=== PATIENT | male | born 1970 | race Hispanic/Latino ===

== ENCOUNTER 2018-10-06 13:31 | Emergency (ER) | payer MEDICAID ==
[2018-10-06 13:40] VITALS: BP 126/84
--- NOTE | 2018-10-06 13:42 | Emergency Department Report ---
Chief Complaint: Skin Rash Stated Complaint: SORES ALL OVER BODY Time Seen by Provider: 10/06/18 13:37 - HPI History of Present Illness: This is a 48 y.o. male that presents to the ER with generalized rash for 2 months. Pruitic rash. PMH arthritis, bipolar, diverticulitis, and chronic back pain Patient treated for bed bugs by termite control technician, given steroid cream, and antibiotics from PCP. - Exam Vital Signs: Vital Signs 10/06/18 13:38 Temperature 98.1 F Pulse Rate 99 H Respiratory 16 Rate Blood Pressure 126/84 O2 Sat by Pulse 97 Oximetry MSE screening note: Focused history and physical exam performed. Due to findings the following was ordered: ACC for further evaluation. ED Disposition for MSE Condition: Stable
--- NOTE | 2018-10-06 15:08 | Emergency Department Report ---
ED Rash HPI - HPI Chief Complaint: Skin Rash Stated Complaint: SORES ALL OVER BODY Time Seen by Provider: 10/06/18 13:37 Duration: approx 2 months Location: Neck, Back, Abdomen, Upper Extremities, Lower Extremities, Other (sparing the palms and soles) Rash Symptoms: Yes Itching, No Facial Swelling, No Tongue/Oral Swelling, No Breathing Difficulties, No Choking Sensation, No Wheezing/Dyspnea, No Peeling, No Blistering, No Fever, No Lightheaded, No Malaise, No Myalgias Other History: Patient is a 48-year-old male who has had sore like lesions some surrounding erythema on his body for the last month. Patient saw a white shoe examiner and was told that he may have bedbugs. Patient states he was treated with permethrin twice and also was started on an unknown antibiotic. Patient states these sores have not gotten any better. The patient denies any fevers chills nausea vomiting. Patient is not sexually active at this time however he states that approximately 20 years ago he was contacted by the health department told he had exposure to syphilis. Patient did not follow-up. ED Review of Systems ROS: Stated complaint: SORES ALL OVER BODY Other details as noted in HPI Comment: All other systems reviewed and negative ED Past Medical Hx - Past Medical History Previous Medical History?: Yes Hx Arthritis: Yes Hx Psychiatric Treatment: Yes (BIPOLAR, SCHIZOPHRENIA, DEPRESSION, ANXIETY) Additional medical history: Diverticulitis - Surgical History Past Surgical History?: Yes Additional Surgical History: SPLEENECTOMY - Social History Smoking Status: Current Every Day Smoker Substance Use Type: None - Medications Home Medications: Home Medications Medication Instructions Recorded Confirmed Last Taken Type Divalproex [Jaziel Hollis] 1,000 mg PO QPM 02/21/15 02/21/15 02/20/15 History FLUoxetine [PROzac] 20 mg PO QPM 02/21/15 02/21/15 02/20/15 History OLANzapine [ZyPREXA] 5 mg PO QPM 02/21/15 02/21/15 02/20/15 History Chlorhexidine Gluconate [Hibiclens] 1 applic TP BID #500 ml 10/06/18 Unknown Rx Doxycycline [Vibramycin CAP] 100 mg PO Q12HR #28 capsule 10/06/18 Unknown Rx Ibuprofen [Ibu] 600 mg PO Q6HR PRN #20 tablet 10/06/18 Unknown Rx Rash Exam - Exam General: Vital signs noted. No distress. Alert and acting appropriately. HEENT: No Periorbital Edema, No Conjuctival Injection, No Chemosis, No Perioral Edema, No Tongue Edema, No Uvular Edema, No Compromised Airway, No Drooling Lungs: Yes Good Air Exchange (Normal Breath Sounds), No Wheezes, No Ronchi, No Stridor, No Cough, No Labored Respirations, No Retractions, No Use of Accessory Muscles, No Other Abnormal Lung Sounds Heart: Yes Regular, No Murmur Skin: Yes Tenderness, Yes Erythema, Yes Other (patient has multiple ulcerated lesions diffusely in various stages of healing on his back and torso upper and lower extremities) Other: Positive: Abdomen Normal, Neurologic Normal, Musculoskeletal Normal ED Course Vital Signs 10/06/18 13:38 Temperature 98.1 F Pulse Rate 99 H Respiratory 16 Rate Blood Pressure 126/84 O2 Sat by Pulse 97 Oximetry ED Medical Decision Making - Medical Decision Making Patient's lesions are not classic for syphilis however RPR has been sent. Patient is lesions. He has some secondary infection in particular and lesions on the back. Patient be referred back to dermatology patient be started on doxycycline patient be discharged home.` Critical care attestation.: If time is entered above; I have spent that time in minutes in the direct care of this critically ill patient, excluding procedure time. ED Disposition Clinical Impression: Skin lesions Disposition: DC-01 TO HOME OR SELFCARE Is pt being admited?: No Does the pt Need Aspirin: No Condition: Stable Referrals: [facility] [Provider Group] - 3-5 Days Time of Disposition: 15:13
== END 2018-10-06 15:28 | disposition home or self-care (01) ==
LOC: ED 13:31
DX: L98.9 Disorder of the skin and subcutaneous tissue, unspecified (principal); M19.90 Unspecified osteoarthritis, unspecified site; F31.9 Bipolar disorder, unspecified; F17.200 Nicotine dependence, unspecified, uncomplicated; Z88.0 Allergy status to penicillin; Z88.4 Allergy status to anesthetic agent; Z79.899 Other long term (current) drug therapy
CPT/HCPCS: 36415; 86592; 99283

== ENCOUNTER 2018-10-11 10:10 | Emergency (ER) | payer MEDICAID ==
[2018-10-11 10:56] LABS: Basophils # (Auto) 0.1 K/mm3 (0.0-0.1); Basophils % (Auto) 0.9 % (0.0-1.8); Eosinophils # (Auto) 0.2 K/mm3 (0.0-0.4); Hematocrit 44.1 % (35.5-45.6); Hemoglobin 15.3 gm/dl (11.8-15.2); Lymphocytes # (Auto) 2.9 K/mm3 (1.2-5.4); Lymphocytes % (Auto) 31.5 % (13.4-35.0); Mean Corpuscular HGB Conc 35 % (32-34); Mean Corpuscular Volume 91 fl (84-94); Monocytes # (Auto) 0.7 K/mm3 (0.0-0.8); Monocytes % (Auto) 7.7 % (0.0-7.3); Platelet Count 226 K/mm3 (140-440); Red Blood Count 4.84 M/mm3 (3.65-5.03); Red Cell Distribution Width 14.3 % (13.2-15.2)
[2018-10-11 11:15] LABS: BUN/Creatinine Ratio 41; Blood Urea Nitrogen 33 mg/dL (9-20); Calcium 8.9 mg/dL (8.4-10.2); Hemolysis Index 114
[2018-10-11] MEDS ORDERED: NACL 0.9% 1000 ML 1,000 ML IV ONE (11:31)
--- NOTE | 2018-10-11 11:43 | Emergency Department Report ---
HPI - General Chief Complaint: Abdominal Pain Time Seen by Provider: 10/11/18 11:00 - HPI HPI: 48-year-old male presents to the emergency department with a complaint of some rectal bleeding and lower abdominal pain has been going on for the past 24 hours. He denies any fever, nausea, vomiting, diarrhea. He has a history of diverticulosis, diverticulitis, arthritis, bipolar disorder and depression. His director case is Dr. woo in his primary care physician is Dr. Penn. No recent travel or sick contacts at home. He has not taken anything for his symptoms prior to arrival. ED Past Medical Hx - Past Medical History Previous Medical History?: Yes Hx Arthritis: Yes Hx Psychiatric Treatment: Yes (BIPOLAR, SCHIZOPHRENIA, DEPRESSION, ANXIETY) Additional medical history: Diverticulitis - Surgical History Past Surgical History?: Yes Additional Surgical History: SPLEENECTOMY - Social History Smoking Status: Current Every Day Smoker Substance Use Type: Alcohol - Medications Home Medications: Home Medications Medication Instructions Recorded Confirmed Last Taken Type Divalproex Dr [Jaziel Hollis] 1,000 mg PO QPM 02/21/15 02/21/15 02/20/15 History FLUoxetine [PROzac] 20 mg PO QPM 02/21/15 02/21/15 02/20/15 History OLANzapine [ZyPREXA] 5 mg PO QPM 02/21/15 02/21/15 02/20/15 History Chlorhexidine Gluconate [Hibiclens] 1 applic TP BID #500 ml 10/06/18 Unknown Rx Doxycycline [Vibramycin CAP] 100 mg PO Q12HR #28 capsule 10/06/18 Unknown Rx Ibuprofen [Ibu] 600 mg PO Q6HR PRN #20 tablet 10/06/18 Unknown Rx ED Review of Systems ROS: Stated complaint: GI BLEED Other details as noted in HPI Comment: All other systems reviewed and negative Constitutional: denies: chills, fever Eyes: denies: eye pain, vision change ENT: denies: ear pain, throat pain Respiratory: denies: cough, shortness of breath Cardiovascular: denies: chest pain, palpitations Gastrointestinal: abdominal pain, other (rectal bleeding) Genitourinary: denies: urgency, dysuria Musculoskeletal: denies: back pain, arthralgia Skin: denies: rash, lesions Neurological: denies: headache, weakness Physical Exam - Physical Exam Vital Signs: Vital Signs 10/11/18 10:16 Temperature 98.7 F Pulse Rate 104 H Respiratory 18 Rate Blood Pressure 133/82 O2 Sat by Pulse 97 Oximetry Physical Exam: GENERAL: The patient is well-developed well-nourished. HEENT: Normocephalic. Atraumatic. Patient has moist mucous membranes. EYES: Extraocular motions are intact. NECK: Supple. Trachea is midline. CHEST/LUNGS: Clear to auscultation. There is no respiratory distress noted. HEART/CARDIOVASCULAR: Regular. There is no tachycardia. There is no obvious murmur. ABDOMEN: Abdomen is soft. Mild lower abdominal tenderness to palpation. No guarding. Patient has normal bowel sounds. There is no abdominal distention. SKIN: Skin is warm and dry. NEURO: The patient is awake, alert, and oriented. The patient is cooperative. The patient has no focal neurologic deficits. The patient has normal speech. MUSCULOSKELETAL: There is no tenderness or deformity. There is no limitation range of motion. There is no evidence of acute injury. RECTAL: No gross blood. No external hemorrhoids or lesions seen. A small amount of stool was obtained for guaiac testing but was positive. ED Course Vital Signs 10/11/18 10:16 Temperature 98.7 F Pulse Rate 104 H Respiratory 18 Rate Blood Pressure 133/82 O2 Sat by Pulse 97 Oximetry - Consultations Consultation #1: 10/11/18 16:17 I spoke with Rosalie the PA for [facility], who listened to the case presentation and gastroenterology agrees with the plan for discharge and outpatient follow-up. ED Medical Decision Making - Lab Data Result diagrams: 10/11/18 10:39 10/11/18 10:39 - Radiology Data Radiology results: report reviewed PROCEDURE: CT ABDOMEN PELVIS WO CON TECHNIQUE: CT examination of the abdomen without IV contrast CT examination of the pelvis without IV contrast Lack of oral and IV contrast limits the examination. HISTORY: Abd pain, rectal bleeding COMPARISONS: February 21, 2015 FINDINGS: Nonspecific slight prominence of pleural fat in the inferior left major fissure likely reflects developmental variation. Slight linear scar versus atelectasis in both lung bases posteriorly. No acute fracture. Normal noncontrast appearance of the liver, gallbladder, adrenals, pancreas, and spleen containing benign calcified granulomas. Normal caliber abdominal aorta with slight calcified atherosclerotic plaque. Normal caliber IVC. 3 mm and 6 mm nonobstructing right renal calculi. Otherwise normal-appearing right kidney and ureter. 2 mm nonobstructing left renal calculus. 11 mm nonspecific hyperdense exophytic left renal lesion arising from the lateral lower pole. Average CT density is 51. This may be a hyperdense complex cyst. It appears new from 2015. Recommend follow-up ultrasound. No left hydronephrosis. Normal appearing left ureter. Small fat-containing umbilical hernia. Small fat-containing bilateral inguinal hernia, slightly larger on the left. No retroperitoneal adenopathy. No evidence of mesenteric mass. Normal-appearing stomach and duodenum. No small bowel distention in the abdomen and pelvis. No pelvic free fluid. Normal-appearing urinary bladder, prostate, and seminal vesicles. No definite rectal abnormality. No gross ascites, free air, or colonic distention. Normal- appearing cecum, terminal ileum, and appendix. There is slight sigmoid diverticulosis without CT evidence of diverticulitis. There is a 1.7 cm long segment of mid sigmoid colon which is collapsed and possibly contains mural thickening. This may be artifact of decompression from peristalsis. Differential includes focal edema, inflammation, infection, or neoplastic infiltration. IMPRESSION: Nonspecific collapsed appearance of a 1.7 cm on segment of mid sigmoid colon likely reflects artifact of decompression from peristalsis. Suggestion of slight mural thickening in this region, however, raises low-level suspicion of edema, inflammation, infection, or neoplastic infiltration. Slight sigmoid diverticulosis without CT evidence of diverticulitis New hyperdense exophytic smoothly marginated lesion in left kidney may be a benign hyperdense cyst. Recommend follow-up renal ultrasound Bilateral nonobstructing renal calculi Multifocal fat-containing hernias This document is electronically signed by Doug Robledo MD., October 11 2018 02:27:54 PM ET Transcribed By: CHRISTIANA Dictated By: DOUG ROBLEDO MD Electronically Authenticated By: DOUG ROBLEDO MD Signed Date/Time: 10/11/18 1421 - Medical Decision Making Patient presents to the emergency department with some recent rectal bleeding. Labs and unremarkable. Hemoglobin is 15.3. On examination he has some mild lower abdominal tenderness to palpation but no guarding in his abdomen is nontoxic, nonrigid. Patient complains of some generalized weakness but he was seen ambulatory throughout the emergency department and even made a few trips outside to his car and does not appear unstable or in any acute distress. A CT scan of the abdomen and pelvis was done that shows some slight sigmoid diverticulosis, a possible renal cyst, and the nonspecific appearance of the mid sigmoid colon. Rectal examination, there were no external hemorrhoids or lesions. Stool is obtained that was positive on guaiac testing but there was no gross blood. I spoke with gastroenterology who listened to the case presentation and agrees with the plan for discharge and outpatient GI follow-up. All the labs and imaging and plan for discharge were discussed with the patient who understands and agrees. He will return to the ER for any worsening of his symptoms or any acute distress. - Differential Diagnosis malignancy, hemorrhoids, diverticulosis, colitis Critical Care Time: No Critical care attestation.: If time is entered above; I have spent that time in minutes in the direct care of this critically ill patient, excluding procedure time. ED Disposition Clinical Impression: Rectal bleeding, Diverticulosis Abdominal pain Qualifiers: Abdominal location: lower abdomen, unspecified Qualified Code(s): R10.30 - Lower abdominal pain, unspecified Disposition: DC-01 TO HOME OR SELFCARE Is pt being admited?: No Condition: Stable Instructions: Rectal Bleeding (ED), Diverticulosis (ED), Diverticulosis Diet (ED), Abdominal Pain (ED) Additional Instructions: Please follow-up with your primary care physician and director case. Return to the emergency department with any return or worsening of your symptoms including increased rectal bleeding, or with any acute distress. Referrals: RICK PENN MD [Primary Care Provider] - 2-3 Days BRIGITTE WOO MD [Staff Physician] - 2-3 Days Time of Disposition: 15:15
[2018-10-11 13:21] LABS: Bilirubin,Urine NEG (Negative); Blood,Urine NEG (Negative); Color,Urine Yellow (Yellow); Mucus,Urine 3+ /HPF; Protein,Urine <15 mg/dL mg/dL (Negative)
--- NOTE | 2018-10-11 14:29 | Cat Scan Report ---
PROCEDURE: CT ABDOMEN PELVIS WO CON TECHNIQUE: CT examination of the abdomen without IV contrast CT examination of the pelvis without IV contrast Lack of oral and IV contrast limits the examination. HISTORY: Abd pain, rectal bleeding COMPARISONS: February 21, 2015 FINDINGS: Nonspecific slight prominence of pleural fat in the inferior left major fissure likely reflects devel opmental variation. Slight linear scar versus atelectasis in both lung bases posteriorly. No acute fr acture. Normal noncontrast appearance of the liver, gallbladder, adrenals, pancreas, and spleen conta ining benign calcified granulomas. Normal caliber abdominal aorta with slight calcified atherosclerot ic plaque. Normal caliber IVC. 3 mm and 6 mm nonobstructing right renal calculi. Otherwise normal-appearing right kidney and ureter. 2 mm nonobstructing left renal calculus. 11 mm nonspecific hyperdense exophytic left renal lesion randall sing from the lateral lower pole. Average CT density is 51. This may be a hyperdense complex cyst. It appears new from 2014. Recommend follow-up ultrasound. No left hydronephrosis. Normal appearing left ureter. Small fat-containing umbilical hernia. Small fat-containing bilateral inguinal hernia, slightly large r on the left. No retroperitoneal adenopathy. No evidence of mesenteric mass. Normal-appearing stomach and duodenum. No small bowel distention in the abdomen and pelvis. No pelvic free fluid. Normal-appearing urinary bladder, prostate, and seminal vesicles. No definite r ectal abnormality. No gross ascites, free air, or colonic distention. Normal-appearing cecum, termina l ileum, and appendix. There is slight sigmoid diverticulosis without CT evidence of diverticulitis. There is a 1.7 cm long segment of mid sigmoid colon which is collapsed and possibly contains mural th ickening. This may be artifact of decompression from peristalsis. Differential includes focal edema, inflammation, infection, or neoplastic infiltration. IMPRESSION: Nonspecific collapsed appearance of a 1.7 cm on segment of mid sigmoid colon likely reflects artifact of decompression from peristalsis. Suggestion of slight mural thickening in this region, however, ra ises low-level suspicion of edema, inflammation, infection, or neoplastic infiltration. Slight sigmoid diverticulosis without CT evidence of diverticulitis New hyperdense exophytic smoothly marginated lesion in left kidney may be a benign hyperdense cyst. R ecommend follow-up renal ultrasound Bilateral nonobstructing renal calculi Multifocal fat-containing hernias This document is electronically signed by Doug Robledo MD., October 11 2018 02:27:54 PM ET
[2018-10-11 15:45] VITALS: BP 118/75
== END 2018-10-11 15:42 | disposition home or self-care (01) ==
LOC: ED 10:10
DX: K62.5 Hemorrhage of anus and rectum (principal); K57.90 Diverticulosis of intestine, part unspecified, without perforation or abscess without bleeding; M19.90 Unspecified osteoarthritis, unspecified site; F17.200 Nicotine dependence, unspecified, uncomplicated; Z88.6 Allergy status to analgesic agent; Z88.0 Allergy status to penicillin; Z88.8 Allergy status to other drugs, medicaments and biological substances
CPT/HCPCS: 36415; 74176; 80048; 81001; 85025; 99284; J7030